=== PATIENT | female | born 1960 | race Caucasian/White ===

== ENCOUNTER → 2017-01-23 | Day surgery (SDC) | payer MEDICARE, MEDICAID ==
[~2017-01-23] VITALS: Ht 175.3 cm; Wt 119.3 kg
[2017-01-23] VITALS (8 sets, daily range): BP systolic 117–143; BP diastolic 63–92; PULSE 82–91; RESP 13–19; O2SAT 92–96
[~2017-01-23] MED LIST: ALBU8.5H2 INHALATION; AMT50T PO; ATOR20TA65 PO; BACL10TA PO; BUPR75TA10 PO; CLOT15CR5 TOPICAL; Dexamethasone 4 mg/mL Inj IVPUSH PRN; FERR-83 PO; FLUC200T5 PO; FLUO60TA PO; FRSM80T PO; HYDR-3740 PO; HYDR25CA PO; HYDR50CA PO; HYDROcodone-APAP 7.5-325 mg Tablet PO PRN; HYDROmorphone 1 mg/mL Inj IVPUSH PRN; LEVO75TA4 PO; Lactated Ringer's 1,000 ML IV SCH; Lactated Ringer's 500 ML IV PRN; Lidocaine 1%-Epi 1:100,000 20 mL Inj INFILTRATE ONE; MORP-32 PO; MetoCLOpramide 5 mg/mL 2 mL Inj IVPUSH PRN; OXYB15TA PO; Ondansetron 2 mg/mL 2 mL Inj IVPUSH PRN; POTA10CA42 PO; PREG225C PO; Phenylephrine 10,000 mCg/mL Inj IVPUSH PRN; Propofol 10,000 mCg/mL 20 mL Inj ONE; Sodium Bicarb 1 mEq/mL 50 mL Inj ONE; VALA500T38 PO; fentaNYL-PF 50 mCg/mL 2 mL Inj IVPUSH PRN; fentaNYL-PF 50 mCg/mL 2 mL Inj ONE
[2017-01-23] MEDS: Lactated Ringer's 1,000 ML IV SCH ×2 (06:00→06:30)
--- NOTE | 2017-01-23 08:00 | PCM.ANEP1 ---
Post Anesthesia PACU Phase 1 Assessment Vital Signs Vital Signs Date Time Temp Pulse Resp B/P Pulse Ox O2 Delivery O2 Flow Rate FiO2 01/23/17 07:56 36.3 91 19 139/92 95 Nasal Cannula 3 01/23/17 06:35 35.9 82 16 143/77 96 Room Air Anesthetic Administered: GA Level of Alertness: Sleepy, easy to arouse Pain: No Nausea or Vomiting: No CV Function & Hydration Stable: Yes Airway Device: Oxygen Delivery: Nasal Cannula Lungs: Clear to Auscultation PACU Phase 2 Assessment Patient Instructions Provided: N/A Harsha Islas MD Jan 23, 2017 08:00
--- NOTE | 2017-01-23 08:38 | PCM.HPANE ---
Patient Data Date of Service: Jan 23, 2017 Surgeon Admitting Provider: Attending Provider:Jorge Nation DO Primary Care Physician:Kitty Mann DO Other Provider:Jorgito Heck Anesthesia Reason for Visit Bilateral Carpal Tunnel Syndrome Ht/WT & BMI Height (Feet): 5 Height (Inches): 9 Weight (Kilograms): 119.3 Body Mass Index 38.00 Allergies Coded Allergies: Penicillins (Verified Allergy, Severe, OK WITH MEROPENEM, 01/20/17) levofloxacin (Verified Allergy, Intermediate, Nausea,Vomiting,Diarrhea, 03/28) Nitrofuran Analogues (Verified Allergy, Unknown, 01/20/17) Sulfa (Sulfonamide Antibiotics) (Verified Allergy, Unknown, 01/20/17) lisinopril (Verified Allergy, Unknown, RASH, 01/20/17) latex (Verified Adverse Reaction, Mild, harsh to skin, 01/20/17) Past Anesthesia History Anesthesia History: Denies:: Abnormal Airway, Anesthesia Reactions, Difficult Intubation, Fam Anesthesia Reaction, Fam Malignant Hypertherm, Malignant Hyperthermia Diabetes History Hx Diabetes?: No MRSA MRSA: No Medications Home Meds Incl Beta Karissa: No Reported Medications Valacyclovir 500 Mg Bpdufe992 Mg PO HS 01/20/17 Pregabalin (Lyrica)225 Mg Nehdvej215 Mg PO BID 30 Days Ref 0 01/20/17 Potassium Chloride 10 Meq Capsule.er10 Meq PO HS 30 Days Ref 0 TAKE WITH FOOD 01/20/17 Oxybutynin Chloride ER 15 Mg Tab.er.2415 Mg PO HS Ref 0 01/20/17 Morphine Sulfate ER 15 Mg Evbcrz92 Mg PO BID 01/20/17 Levothyroxine 75 Mcg Ydymla32 Mcg PO DAILY Ref 0 01/20/17 Bupropion 75 Mg Adkpon87 Mg PO HS Ref 0 01/20/17 Hydroxyzine Pamoate (Vistaril)50 Mg Mxfzrkj02 Mg PO HS PRN For Insomnia Ref 0 01/20/17 Hydroxyzine Pamoate (Vistaril)25 Mg Jmkdhmh48 Mg PO HS PRN For Insomnia Ref 0 01/20/17 Hydrocodone-Acetaminophen 10-325 mg 1 Each Tablet1 Tablet PO Q6H PRN For Pain Ref 0 01/20/17 Furosemide 80 Mg Tab80 Mg PO BID 30 Days Ref 0 01/20/17 Fluoxetine 60 Mg Qjgcri24 Mg PO HS Ref 0 01/20/17 Fluconazole 200 Mg Remlpb301 Mg PO HS Ref 0 01/20/17 Ferrous Sulfate 325 Mg Sezwqy286 Mg PO DAILY 30 Days Ref 0 01/20/17 Clotrimazole/Betamethasone Dip (Lotrisone)15 Gm Cream..g.15 Gm TOPICAL 01/20/17 Baclofen 10 Mg Bywtce35 Mg PO HS Ref 0 01/20/17 Atorvastatin Calcium 20 Mg Ddrcvk00 Mg PO DAILY Ref 0 01/20/17 Amitriptyline 50 Mg Tab50 Mg PO HS Ref 0 01/20/17 Albuterol HFA (Proair HFA)8.5 Gm Hfa.aer.ad2 Puffs INHALATION Q4H #1 INHALER 01/20/17 Discontinued Reported Medications Ferrous Sulfate 325 Mg Tablet.dr325 Mg PO DAILY 30 Days Ref 0 04/19/16 Fluoxetine 60 Mg Hfttmy26 Mg PO DAILY Ref 0 04/19/16 Fluconazole 200 Mg Hwmrjp242 Mg PO DAILY Ref 0 04/19/16 Hydroxyzine Pamoate (Vistaril)25 Mg Lyjhjqb96-32 Mg PO HS PRN For Insomnia Ref 0 04/16/16 Potassium Chloride 10 Meq Tab.er.prt10 Meq PO DAILY 30 Days Ref 0 TAKE WITH FOOD 04/16/16 Morphine Sulfate ER 15 Mg Cslbhr38 Mg PO Q12H 04/16/16 Furosemide 20 Mg Tab80 Mg PO BID 30 Days Ref 0 04/16/16 Bupropion ER 150 Mg Tablet.er75 Mg PO BID Ref 0 04/16/16 Oxybutynin Chloride ER 15 Mg Tab.er.2415 Mg PO HS Ref 0 09/05/15 Amitriptyline 50 Mg Tab50 Mg PO HS Ref 0 09/05/15 Baclofen 10 Mg Spymze59 Mg PO TID Ref 0 09/05/15 Albuterol HFA (Proair HFA)8.5 Gm Hfa.aer.ad1-2 Puffs INHALATION Q4H PRN For Shortness of Breath 06/04/15 Pregabalin (Lyrica)225 Mg Rabuubb006 Mg PO BID 30 Days Ref 0 06/01/15 Hydrocodone-Acetaminophen 10-325 mg 1 Tab Tablet1 Tab PO Q4-6H PRN For Pain Ref 0 08/19/14 Valacyclovir 500 Mg Ewofvk931 Mg PO HS 08/19/14 Clotrimazole/Betamethasone Dip (Lotrisone)15 Gm Cream..g.1 Applic TP BID PRN yeast 08/19/14 Atorvastatin Calcium 20 Mg Hqzofn08 Mg PO HS #30 TABLET Ref 0 05/29/14 Levothyroxine 75 Mcg Fhotkh43 Mcg PO DAILY 0 Days Ref 0 10/14/13 History History of ENT Problems?: No HEENT History: Denies:: Abnormal Airway Cataracts Difficult Intubation Dysphagia Hearing Problem Sinus Problem TMJ Denture Type: None Teeth Condition: Broken Teeth Missing Teeth Hx of Heart Problems?: Yes Cardiovascular History: Positive for:: Edema (starting around ankles) Denies:: AICD Atrial Fibrillation Cardiac Surgery Chest Pain Congestive Heart Failure Heart Murmur Hypertension Irregular Heartbeat Pacemaker Thrombophlebitis Valvular Heart Disease Hx of Respiratory Problem?: Yes Respiratory History: Positive for:: Chest Surgery (Chest tube as child) Cough ([place] in morning) Dyspnea (able to climb a flight of stairs) Pneumonia (multiple aspiration pneumonias- ) Use of C-PAP Machine (Not able to wake up easily when using. has teen daughter to keep track of) Use of Inhalers / NEBS (Albuterol) Denies:: Asthma COPD Emphysema Hemoptysis Oxygen Administration Pulmonary Embolism Tuberculosis Hx Neurologic Problems?: Yes Neurological History: Positive for:: Headaches Denies:: Alzheimer's Disease CVA Dementia Dizziness Multiple Sclerosis Parkinson's Disease Seizures TIA Hx of GI Problems?: Yes Other GI Pertinent History: Has Neurogenic bladder, indwelling catheter Hx of Problems?: Yes Genitourinary History: Positive for:: Kidney Stones Urinary Tract Infection (hx of) Denies:: HX of Hemodialysis HX of Peritoneal Dialysis: No Female Hx: Denies:: Currently Endometriosis Pelvic Inflammatory Problems with Breasts? Skin History: Denies:: History Skin Disorders? Pressure Ulcers Hx Musculoskeletal Problems?: Yes Musculoskeletal History: Positive for:: Back Injury (14 yrs ago work inj L4-6 , sciatic nerve damage ) Fibromyalgia Osteoarthritis Denies:: Degenerative Joint Joint Replacement Musculoskeletal Trauma Myasthenia Gravis Rheumatoid Arthritis Systemic Lupus Hx of Psycho/Social Problems?: Yes Psycho Social History: Positive for:: Anxiety Hx Depression Suicide Attempt ("overdosed on pills in high school") Denies:: Bipolar Disorder Hx Surgeries?: Yes (TRACH A CHILD, BACK TUMOR, SPINAL STIMULATOR, BTL, OOPHORECTOMY) Hx Any Other Health Problems?: Yes Other History: Positive for:: Hospitalization (pneumonia) Thyroid Disease (hypothyroid) Denies:: Cancer Endocrine Disease History Blood Transfusions: Positive for:: Accept Blood Products? Blood Transfusions Denies:: Blood Transfuse Reaction Hx Diabetes: No Hx Alcohol Use: NoHx Substance Use: No Smoking Status: Current Some Day Smoker Light Tobacco Smoker Have You Smoked inLast 12 mo: YesApprox How Many Cigarettes/day: 8-10 Stop/Bang Treated for Sleep Apnea?: Yes Do You Have a CPAP Machine?: Yes BRAVO Risk Assessment: High Risk, =/>3 Yes BRAVO Category 1: Yes Risk Assessment Category Category 1A: Patient has history of documented sleep apnea, and HAS NOT received any narcotic, sedative or anesthesia administration during this stay. Category 1B: Patient has history of documented sleep apnea, and HAS received any narcotic , sedative or anesthesia administration during this stay Category 2: Patient has SUSPECTED Obstructive Sleep Apnea, and HAS received any narcotic , sedative or anesthesia administration during this stay. Category 3: Patient has SUSPECTED Obstructive Sleep Apnea and HAS NOT received narcotic, sedative or anesthesia administration during this stay. Category 4: Outpatient in Procedural Areas with known sleep apnea or who screen positive for High Risk via the STOP/BANG questionnaire. Exam Exam Vital Signs Vital Signs Date Time Temp Pulse Resp B/P Pulse Ox O2 Delivery O2 Flow Rate FiO2 01/23/17 08:20 36.0 89 13 130/75 94 Nasal Cannula 3 01/23/17 08:10 89 18 135/83 94 Nasal Cannula 3 01/23/17 08:05 89 15 143/76 94 Nasal Cannula 3 01/23/17 08:00 89 13 126/75 94 Nasal Cannula 3 01/23/17 08:00 Nasal Cannula 01/23/17 07:56 36.3 91 19 139/92 95 Nasal Cannula 3 01/23/17 06:35 35.9 82 16 143/77 96 Room Air General Appearance: Alert, Oriented X3, Cooperative HEENT/AIRWAY: MP 3 Lungs: Clear to Auscultation Heart: Exam Unremarkable Meds/Labs/Diagnostics Admission Meds Current Medications Lactated Ringer's (Lr) 1,000 ml @ 120 mls/hr Q8H20M IV Last administered on t 06:00; Start 01/23/17 at 05:00; Stop 01/23/17 at 13:19 Lidocaine/ Epinephrine (Xylocaine 1%-Epinephrine 1:100,000 Inj) 7 ml STK-MED ONCE INFILTRATE Last administered on 01/23/17t 07:47; Start 01/23/17 at 07:47; Stop 01/23/17 at 07:48; Status DC Plan Impression Patient chart reviewed, patient interviewed and anesthestic plan with risks, benefits, and alternatives discussed, and informed consent obtained. NPO per Anesth. Guidelines: Yes ASA Physical Status: ASA3 Severe Disease Anesthetic Plan: GA Bene/Risks/Altern/Consents: Yes HP Complete Prior to Induction: Yes Harsha Islas MD Jan 23, 2017 08:38
--- NOTE | 2017-01-23 19:51 | OP ---
[address] [address] OPERATIVE REPORT PATIENT: SIVA HOLT : 1960 MR#: [id number] ADMIT: 01/23/2017 JOB ID: [id number] DATE OF SURGERY: 01/23/2017 PREOPERATIVE DIAGNOSIS(ES): Right carpal tunnel syndrome. POSTOPERATIVE DIAGNOSIS(ES): Right carpal tunnel syndrome. PROCEDURE: Right open carpal tunnel release. SURGEON: Jorge Nation DO ANESTHESIA: General. BRIEF HISTORY: The patient is a pleasant 56-year-old female with a longstanding history of right hand pain and paresthesias. She was treated conservatively for carpal tunnel syndrome and failed to get any relief of her symptoms. We had confirmation with electrodiagnostic studies and the failure of conservative treatment. I gave the patient the option to proceed with a right open carpal tunnel release. She understood the risks include, but were not limited to, neurovascular injury, tendon injury, infection, failure to resolve the patient of her preoperative symptoms, stiffness, persistent pain, all which may require further intervention. The patient had all her questions answered. Consent was signed and placed in the chart. PROCEDURE IN DETAIL: The patient was brought to the operative suite and placed supine on the operating table. Surgical time-out was then performed. Everyone in the room was in agreement. After appropriate anesthesia was obtained, a right upper arm tourniquet was applied and the right upper extremity was prepped and draped in sterile fashion. The right upper extremity was then exsanguinated and the tourniquet inflated to 250 mmHg. A 2 cm longitudinal incision was made in line with the radial aspect of the ring finger and the ulnar aspect of the palmaris longus. The incision was kept distal to the wrist crease and proximal to Sloan cardinal line. Subcutaneous tissues were dissected with bipolar electrocautery utilized to maintain hemostasis throughout the procedure. The palmar fascia was first identified and incised longitudinally in line with the skin incision, followed by exposure of the underlying transverse carpal ligament. The transverse carpal ligament was then released in its entirety to include the distal extent of the antebrachial fascia. Copious irrigation was performed followed by closure of skin with 5-0 nylon in interrupted fashion. The patient was then placed in a bulky soft dressing. ESTIMATED BLOOD LOSS: Less than 1 mL. COMPLICATIONS: None. DISPOSITION: The patient tolerated the procedure well. Anesthesia was reversed. The patient was transferred to the PACU for recovery. POSTOPERATIVE PLAN: The patient will follow up in the office in two weeks for suture removal and to start working on range of motion and scar mobilization.
== END | disposition home or self-care (01) ==
LOC: SAS 06:09
PROVIDERS: ATTEND Orthopaedic Surgery
DX: G56.01 Carpal tunnel syndrome, right upper limb (principal); I10 Essential (primary) hypertension; G47.33 Obstructive sleep apnea (adult) (pediatric); E03.9 Hypothyroidism, unspecified; E78.5 Hyperlipidemia, unspecified; F41.8 Other specified anxiety disorders; K21.9 Gastro-esophageal reflux disease without esophagitis; F17.210 Nicotine dependence, cigarettes, uncomplicated; Z79.51 Long term (current) use of inhaled steroids
CPT/HCPCS: 64721; J2704; J3010; J7120